=== PATIENT | female | born 1960 | race Caucasian/White ===

== ENCOUNTER 2022-10-29 05:26 | Day surgery (SDC) | payer OTHER ==
[2022-10-28 14:44] VITALS: BMI 26.2
[2022-10-29 13:57] VITALS: TEMP 97.8
[2022-10-29 14:27] VITALS: BP 119/59; PULSE 63; RESP 18
== END 2022-10-29 14:27 | disposition home or self-care (01) ==
LOC: JASU-ENDO 05:26
PROVIDERS: ATTEND Student in an Organized Health Care Education/Training Program
PROC: 0DB68ZX Excision of Stomach, Via Natural or Artificial Opening Endoscopic, Diagnostic (ICD-10-PCS; 2022-10-29)
PROC: 0DB98ZX Excision of Duodenum, Via Natural or Artificial Opening Endoscopic, Diagnostic (ICD-10-PCS; principal; 2022-10-29 13:00)
DX: K29.50 Unspecified chronic gastritis without bleeding (principal)